=== PATIENT | male | born 1985 | race Caucasian/White ===

== ENCOUNTER 2018-07-11 08:31 | Emergency (ER) | payer BC ==
[~2018-07-11] VITALS: Ht 185.4 cm; Wt 95.5 kg
[~2018-07-11 08:31] MED LIST: LEVAQUIN 750MG750 M1 PO; NAPROSYN500 MG PO; NORCO 325 MG-51 TAB PO
[2018-07-11 08:46] VITALS: BP 129/81; TEMP 98.5
[2018-07-11 10:09] VITALS: PULSE 87
== END 2018-07-11 10:10 | disposition home or self-care (01) ==
LOC: COL.ER 08:31
DX: S86.011A Strain of right Achilles tendon, initial encounter (principal); X50.0XXA Overexertion from strenuous movement or load, initial encounter; Y92.830 Public park as the place of occurrence of the external cause
CPT/HCPCS: Q4045